=== PATIENT | male | born 1995 | race Caucasian/White ===

== ENCOUNTER 2017-02-20 16:45 | Emergency (ER) | payer OTHER ==
[2017-02-20 16:56] VITALS: TEMP 98.5; O2SAT 100
[2017-02-20] MEDS ORDERED: Sodium Chloride 0.9% 1,000 ML IV STA (17:19)
--- NOTE | 2017-02-20 17:34 | ED PDOC ---
HPI: SOB/CHF/COPD - Risk Factors PE Risk Factors: Neg: Extremity Immobilization/Fx, Decreased Mobilty /Activity, Recent Major Surgery, Recent Hospitalization, Active Cancer, Previous DVT, Previous PE, CHF, Venous Stasis, Estrogen Usage, , Post-, Recent Major Trauma <Sawyer Ojeda - Last Filed: 02/20/17 19:03> <Rowena Ellison - Last Filed: 02/21/17 14:23> Time Seen by Provider: 02/20/17 16:59 Chief Complaint (Nursing): Shortness Of Breath Additional Complaint(s): 21 year old male with medical history of asthma presents to ED due to shortness of breath, anxiousness, chest pain. Patient states was in usual state of health until Monday night when he had 2 glasses of pinot grigio when symptoms of dyspnea, anxiousness began. Patient then smoked marijuana later than evening, which calmed him down and allowed him to sleep. Yesterday, patient has symptoms throughout the day intermittently, at night was able to use nebulized albuterol which gave relief to patient and allowed him to sleep. Patient states similar symptoms today, though without successful relief with albuterol. Patient states he cant sit still, very anxious, feels he has fluids in lungs, chest pain is bilateral, feels like someone is sitting on his chest, and he is tearful. ( Sawyer Ojeda) Supervising Attending Note <Sawyer Ojeda - Last Filed: 02/20/17 19:03> - Supervising Attending Note The Documented history was done by the: Physician Simulation Technician, Attending Physician The documented physical exam was done by the: Physician Simulation Technician, Attending Physician - Attestation: I have personally seen and examined this patient.: Yes I have fully participated in the care of the patient.: Yes I have reviewed all pertinent clinical information, including history, physical exam and plan: Yes <Rowena Ellison - Last Filed: 02/21/17 14:23> - Notes: Notes:: 7p Pending Crisis eval 9p Evaluated by Dominic CHIN Pt stable for discharge with outpatient psych follow up. (Rowena Ellison) Past Medical History Reviewed: Historical Data, Nursing Documentation, Vital Signs - Medical History PMH: Asthma, Gastritis Denies: Diabetes, Hepatitis, HIV, HTN, Chronic Kidney Disease, Seizures, Sexually Transmitted Disease - Surgical History Surgical History: Tonsillectomy - Family History Family History: States: No Known Family Hx - Social History Alcohol: Occasional Drugs: Cannabis <Sawyer Ojeda - Last Filed: 02/20/17 19:03> <ScotRowena J - Last Filed: 02/21/17 14:23> Vital Signs: Last Vital Signs Temp 98.5 F 02/20/17 16:54 Pulse 77 02/20/17 21:19 Resp 18 02/20/17 21:19 BP 115/60 02/20/17 21:19 Pulse Ox 100 02/20/17 21:19 - Home Medications Home Medications: Ambulatory Orders Medication Instructions Recorded Multivitamin and [id number] [Daily 1 tab PO DAILY #0 tab 02/17/15 Multi/Max-Vitamins] traMADol [Ultram] 50 mg PO Q6 PRN #0 tab 02/17/15 - Allergies Allergies/Adverse Reactions: Allergies Allergy/AdvReac Type Severity Reaction Status Date / Time kiwi AdvReac SHORTNESS Uncoded 02/20/17 16:54 OF BREATH Review of Systems ROS Statement: Except As Marked, All Systems Reviewed And Found Negative Cardiovascular: Positive for: Chest Pain, Palpitations Respiratory: Positive for: Shortness of Breath Psych: Positive for: Anxiety <Sawyer Ojeda - Last Filed: 02/20/17 19:03> Physical Exam - Reviewed Nursing Documentation Reviewed: Yes Vital Signs Reviewed: Yes - Physical Exam Appears: Positive for: Non-toxic, Uncomfortable (fidgety, anxious appearing, tearful) Head Exam: Positive for: ATRAUMATIC, NORMAL INSPECTION, NORMOCEPHALIC Skin: Positive for: Normal Color, Warm Eye Exam: Positive for: Normal appearance, EOMI ENT: Positive for: Pharynx Is (normal, clear) Neck: Positive for: Normal, Painless ROM, Supple Cardiovascular/Chest: Positive for: Tachycardia (regular rhythm), Other ( reproducible chest pain left sided) Respiratory: Positive for: Normal Breath Sounds <Sawyer Ojeda - Last Filed: 02/20/17 19:03> - Laboratory Results Result Diagrams: 02/20/17 17:30 02/20/17 17:30 - ECG O2 Sat by Pulse Oximetry: 100 <Sawyer Ojeda - Last Filed: 02/20/17 19:03> - Laboratory Results Result Diagrams: 02/20/17 17:30 02/20/17 17:30 <Rowena Ellison - Last Filed: 02/21/17 14:23> - Progress ED Course And Treament: Time: 1700 Assessment: 21 year old male with medical history of asthma presents to ED due to shortness of breath, anxiousness, chest pain with episodes beginning Monday night. Worsened by feelings of depression/sadness due to friend he would like to be with. Denies use of illicit drugs at this time though marijuana use Monday night with wine. Vitals stable, PE notable for anxious appearing, reproducible left sided chest pain, tachycardia. DDx includes but not limited to: Panic attack vs anxiety vs drug intoxication. Plan: * CBC * CMP * TROPONIN * MG * PHOS * URINE DRUG SCREEN * ACETAMINOPHEN LEVEL * SALICYLATE LEVEL * CPK * TSH * ALCOHOL SERUM * EKG * CXR * NS 1L BOLUS * REASSESS Time: 1845 Patient calm, laying in bed, appears comfortable. EKG reviewed, sinus tachycardia, no ST changes Labs reviewed, unremarkable except for Total Creatinine Kinase 451, Phosphorus 1.8 Will continue to hydrate via NS at this time Pending UDS. (Sawyer Ojeda) Disposition - Disposition Disposition: Transfer of Care Disposition Time: 19:00 Patient Signed Over To: Rowena Ellison Handoff Comments: Endorsed patient to Dr. Ellison pending urine drug screen and disposition <Sawyer Ojeda - Last Filed: 02/20/17 19:03> - Disposition Disposition: Routine/Home <Rowena Ellison - Last Filed: 02/21/17 14:23> - Clinical Impression Clinical Impression: Anxiety, Marijuana abuse - Disposition Referrals: Community [facility] [Outside] Condition: STABLE Additional Instructions: FOLLOW UP DIRECTED BY NATURAL RESOURCES TECHNICIAN Instructions: Cannabis Abuse (ED), Anxiety (ED) Forms: [facility] ED School/Work Excuse
[2017-02-20 17:51] LABS: BASO # 0.1 K/uL (0.0-0.2); BASO % 0.7 % (0.0-2.0); EOS # 0.5 K/uL (0.0-0.7); EOS % 5.5 % (0.0-4.0); HEMATOCRIT 45.4 % (35.0-51.0); LYMPH # 1.5 K/uL (1.0-4.3); MEAN CELL VOLUME 91.1 fl (80.0-94.0); MEAN CORPUSCULAR HEMOGLOBIN 30.9 pg (27.0-31.0); MEAN CORPUSCULAR HGB CONC 33.9 g/dL (33.0-37.0); MEAN PLATELET VOLUME 8.5 fl (7.2-11.7); MONO # 0.5 K/uL (0.0-0.8); MONO % 6.2 % (0.0-10.0); NEUT # 6.2 K/uL (1.8-7.0); NEUT % 70.6 % (50.0-75.0); RED CELL DISTRIBUTION WIDTH 14.3 % (11.5-14.5); WHITE BLOOD COUNT 8.7 K/uL (4.8-10.8)
[2017-02-20 18:09] LABS: ALB/GLOB RATIO 1.3 (1.0-2.1); ALCOHOL SERUM < 10 mg/dl (0-10); ALKALINE PHOSPHATASE 81 U/L (38-126); ALT/SGPT 28 U/L (21-72); AST/SGOT 42 U/L (17-59); BILIRUBIN,TOTAL 0.8 mg/dl (0.2-1.3); BLOOD UREA NITROGEN 13 mg/dl (9-20); CALCIUM 10.3 mg/dL (8.4-10.2); CARBON DIOXIDE 26 mmol/L (22-30); CHLORIDE 105 mmol/L (98-107); GFR AFRICAN-AMERICAN > 60; GLUCOSE,RANDOM 98 mg/dL (75-110); PHOSPHOROUS 1.8 mg/dl (2.5-4.5); POTASSIUM 3.9 MMOL/L (3.6-5.0); SODIUM 144 mmol/l (132-148); TOTAL PROTEIN 8.6 G/DL (6.3-8.2)
[2017-02-20 18:39] LABS: THYROID STIMULATING HORMONE 0.95 mIU/ML (0.46-4.68)
[2017-02-20 21:20] VITALS: BP 115/60; PULSE 77; RESP 18
--- NOTE | 2017-02-21 07:17 | CARD ---
APPROVED REPORT EKG Measurement Heart [id number] CT 136P60 [id number] <Conclusion> Sinus tachycardia Otherwise normal ECG
--- NOTE | 2017-02-21 09:46 | RAD ---
HISTORY: sob COMPARISON: Comparison chest 02/15/2015 TECHNIQUE: Chest PA and lateral FINDINGS: LUNGS: No active pulmonary disease. PLEURA: No significant pleural effusion identified. No pneumothorax apparent. CARDIOVASCULAR: Normal. OSSEOUS STRUCTURES: No significant abnormalities. VISUALIZED UPPER ABDOMEN: Normal. OTHER FINDINGS: Bilateral nipple rings. IMPRESSION: No active disease.
== END 2017-02-20 22:12 | disposition home or self-care (01) ==
LOC: H.ER 16:45
DX: F41.9 Anxiety disorder, unspecified (principal); F12.10 Cannabis abuse, uncomplicated; J45.909 Unspecified asthma, uncomplicated; R06.02 Shortness of breath; Z86.718 Personal history of other venous thrombosis and embolism

== ENCOUNTER 2019-02-10 17:26 | Inpatient (IN) | payer OTHER ==
[2019-02-10 17:29] VITALS: BMI 25.1
[2019-02-10 18:28] LABS: URINE BILIRUBIN NEGATIVE (NEGATIVE); URINE BLOOD NEGATIVE (NEGATIVE); URINE CLARITY CLEAR (Clear); URINE COLOR COLORLESS (YELLOW); URINE GLUCOSE (UA) NEG (NEGATIVE); URINE LEUKOCYTE ESTERASE NEG Leu/uL (Negative); URINE PROTEIN NEGATIVE (NEGATIVE); URINE UROBILINOGEN 0.2-1.0 mg/dL (0.2-1.0)
--- NOTE | 2019-02-10 18:40 | ED PDOC ---
HPI: Psych/Substance Abuse Time Seen by Provider: 02/10/19 18:15 Chief Complaint (Nursing): Substance Abuse Chief Complaint (Provider): substance abuse ED Caveat: Intoxicated History Per: Patient History/Exam Limitations: intoxication Onset/Duration Of Symptoms: Days Current Symptoms Are (Timing): Still Present Suicide/Self Injury Attempted (Context): Ingestion Ingestion Of Substance: 2mg of aprazolam, alcohol Modifying Factor(s): Alcohol Severity: None Pain Scale Rating Of: 0 Associated Symptoms: Anxiety, Depression, Suicidal Thoughts, Suicidal Plan Involuntary Hold By: Emergency Physician Additional History Per: Patient Additional Complaint(s): 23 year old male brought in ems in stretcher after patient called a "hotline" expressing thoughts of suicide and suicidal ideations. 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 Patient states he has been feeling depressed, anxious with associated suicidal ideations and thoughts since Feburary after being diag nosed with HIV. He was started on xanax after diagnosis due to anxiety and inability to sleep. He states he drinks 2 glasses of wine everyday since diagnoses. Patient states he is also hearing voices telling him that hes "worthless, to kill" himself. patient verbalizes that he does not want to live. He states he has been trying to get help for these thoughts but every where he calls they're unable to give an appointment until for 3 months out. Patient denies nausea, vomiting, abd pain, sob, chest pain. Medical Hx include Asthma. Past Medical History Reviewed: Historical Data, Nursing Documentation, Vital Signs Vital Signs: Last Vital Signs Temp 99 F 02/10/19 17:28 Pulse 92 H 02/10/19 17:28 Resp 16 02/10/19 17:28 BP 139/69 02/10/19 17:28 Pulse Ox 98 02/10/19 17:28 - Medical History PMH: Asthma, Gastritis Denies: Diabetes, Hepatitis, HIV, HTN, Chronic Kidney Disease, Seizures, Sexually Transmitted Disease - Surgical History Surgical History: Tonsillectomy - Family History Family History: States: Unknown Family Hx - Living Arrangements Living Arrangements: With Family - Social History Alcohol: > 2 Drinks/Day Drugs: Denies - Immunization History Hx Tetanus Toxoid Vaccination: No Hx Influenza Vaccination: No Hx Pneumococcal Vaccination: No - Home Medications Home Medications: Ambulatory Orders Medication Instructions Recorded Darunavir/Cob/Emtri/Tenof Alaf 1 tab DAILY 02/10/19 [Symtuza 158-406-154-10 mg Tab] - Allergies Allergies/Adverse Reactions: Allergies Allergy/AdvReac Type Severity Reaction Status Date / Time stella AdvReac SHORTNESS Uncoded 02/20/17 16:54 OF BREATH Review of Systems ROS Statement: Except As Marked, All Systems Reviewed And Found Negative Cardiovascular: Negative for: Chest Pain, Palpitations Respiratory: Negative for: Shortness of Breath Gastrointestinal: Negative for: Nausea, Vomiting, Abdominal Pain Psych: Positive for: Anxiety, Depression, Suicidal ideation Physical Exam - Reviewed Nursing Documentation Reviewed: Yes Vital Signs Reviewed: Yes - Physical Exam Appears: Positive for: Well, Non-toxic, No Acute Distress Head Exam: Positive for: ATRAUMATIC, NORMAL INSPECTION, NORMOCEPHALIC Skin: Positive for: Normal Color, Warm, DRY Eye Exam: Positive for: EOMI, Normal appearance, PERRL ENT: Positive for: Normal ENT Inspection Neck: Positive for: Normal, Painless ROM, Supple Cardiovascular/Chest: Positive for: Regular Rate, Rhythm Respiratory: Positive for: CNT, Normal Breath Sounds Gastrointestinal/Abdominal: Positive for: Normal Exam, Bowel Sounds, Soft. Negative for: Tenderness Male Genital Exam: Positive for: normal genitalia Back: Positive for: Normal Inspection Extremity: Positive for: Normal ROM Neurological/Psych: Positive for: Awake, Alert, Normal Tone, Symmetric/Intact Strength, Oriented - Laboratory Results Result Diagrams: 02/10/19 18:23 02/10/19 18:23 Lab Results: Urine Color Colorless (YELLOW) 02/10/19 18:14 Urine Clarity Clear (Clear) 02/10/19 18:14 Urine pH 6.0 (5.0-8.0) 02/10/19 18:14 Ur Specific [place]ison < 1.005 (1.003-1.030) 02/10/19 18:14 Urine Protein Negative mg/dL (NEGATIVE) 02/10/19 18:14 Urine Glucose (UA) Neg mg/dL (NEGATIVE) 02/10/19 18:14 Urine Ketones Negative mg/dL (NEGATIVE) 02/10/19 18:14 Urine Blood Negative (NEGATIVE) 02/10/19 18:14 Urine Nitrate Negative (NEGATIVE) 02/10/19 18:14 Urine Bilirubin Negative (NEGATIVE) 02/10/19 18:14 Urine Urobilinogen 0.2-1.0 mg/dL (0.2-1.0) 02/10/19 18:14 Ur Leukocyte Esterase Neg Catrina/uL (Negative) 02/10/19 18:14 Urine Microscopic WBC < 1 /hpf (0-5) 02/10/19 18:14 - ECG ECG Rhythm: Positive for: Normal QRS Interpretation Of ECG: SIGNED AND INTERPRETED BY . Rate: 88 O2 Sat by Pulse Oximetry: 98 - Radiology X-Ray: Viewed By Mt X-Ray Interpretation: No Acute Disease Medical Decision Making Medical Decision Making: --CBC --CMP --ALCOHOL LEVEL --SALICYTATE --TYLENOL LEVEL --UA --URINE DRUG SCREEN --EKG --1:1 OBS 19:00: SPOKE TO ADRIEN AT [facility] CALLED FOR RECOMMENDATIONS DUE TO PATIENT INGESTION OF APRAZOLAM AND ALCOHOL. 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 PATIENT IS CURRENTLY AOX3. ANSWERING ALL QUESTIONS. APPROPRIATELY. 19:44: K+: 3.3, KDUR 20 MEQ PO 19:51: HR:74 RESP:18 02SAT: 96% ON RM AIR. PATIENT RESTING COMFORTABLY. ON 1:1 FOR SAFETY. PENDING TYLENOL LEVEL FOR MEDICAL CLEARANCE. PATIENT HANDED -OFF TO EDMUNDO CHAN PA-C TO FOLLOW-UP ON LABS AND PSYCH DISPOSITION. Disposition - Clinical Impression Clinical Impression: Depression, Suicidal intent - Disposition Disposition: Transfer of Care Disposition Time: 20:00 Condition: STABLE Patient Signed Over To: Edmundo Petit Handoff Comments: PENDING TYLENOL LEVEL AND CRISIS EVAL - POA Present On Arrival: None
[2019-02-10 18:43] LABS: BENZODIAZEPINES, UR NEGATIVE (NEGATIVE)
[2019-02-10 19:00] LABS: BASO % 0.7 % (0.0-2.0); EOS # 0.3 K/uL (0.0-0.7); HEMOGLOBIN 14.4 g/dL (12.0-18.0); LYMPH # 2.4 K/uL (1.0-4.3); LYMPH % 38.4 % (20.0-40.0); MEAN CELL VOLUME 91.3 fl (80.0-94.0); MEAN CORPUSCULAR HEMOGLOBIN 30.5 pg (27.0-31.0); MEAN CORPUSCULAR HGB CONC 33.4 g/dL (33.0-37.0); MEAN PLATELET VOLUME 8.2 fl (7.2-11.7); MONO # 0.5 K/uL (0.0-0.8); MONO % 7.7 % (0.0-10.0); NEUT % 48.2 % (50.0-75.0); NRBC % 0.1 % (0.0-0.0); RBC 4.73 Mil/uL (4.40-5.90); RED CELL DISTRIBUTION WIDTH 14.9 % (11.5-14.5); WHITE BLOOD COUNT 6.3 K/uL (4.8-10.8)
[2019-02-10 19:09] LABS: BARBITURATES, UR NEGATIVE (NEGATIVE); OPIATES, UR NEGATIVE (NEGATIVE)
[2019-02-10 19:10] LABS: PHENCYCLIDINE, UR NEGATIVE (NEGATIVE)
[2019-02-10 19:13] LABS: ALB/GLOB RATIO 1.6 (1.0-2.1); ALBUMIN 4.9 g/dL (3.5-5.0); ALT/SGPT 31 U/L (21-72); AST/SGOT 58 U/L (17-59); BLOOD UREA NITROGEN 16 mg/dl (9-20); CALCIUM 9.7 mg/dL (8.4-10.2); GFR NON-AFRICAN AMERICAN > 60
[2019-02-10] MEDS ORDERED: Potassium Chloride 20 mEq ER Tab PO STA (19:41)
--- NOTE | 2019-02-10 20:42 | ED PDOC ---
- Laboratory Results Result Diagrams: 02/10/19 18:23 02/10/19 18:23 Lab Results: Total Bilirubin 0.5 mg/dl (0.2-1.3) 02/10/19 18:23 AST 58 U/L (17-59) 02/10/19 18:23 ALT 31 U/L (21-72) 02/10/19 18:23 Alkaline Phosphatase 60 U/L (38-126) 02/10/19 18:23 Total Protein 7.9 G/DL (6.3-8.2) 02/10/19 18:23 Albumin 4.9 g/dL (3.5-5.0) 02/10/19 18:23 Globulin 3.0 gm/dL (2.2-3.9) 02/10/19 18:23 Albumin/Globulin Ratio 1.6 (1.0-2.1) 02/10/19 18:23 Urine Color Colorless (YELLOW) 02/10/19 18:14 Urine Clarity Clear (Clear) 02/10/19 18:14 Urine pH 6.0 (5.0-8.0) 02/10/19 18:14 Ur Specific [place] < 1.005 (1.003-1.030) 02/10/19 18:14 Urine Protein Negative mg/dL (NEGATIVE) 02/10/19 18:14 Urine Glucose (UA) Neg mg/dL (NEGATIVE) 02/10/19 18:14 Urine Ketones Negative mg/dL (NEGATIVE) 02/10/19 18:14 Urine Blood Negative (NEGATIVE) 02/10/19 18:14 Urine Nitrate Negative (NEGATIVE) 02/10/19 18:14 Urine Bilirubin Negative (NEGATIVE) 02/10/19 18:14 Urine Urobilinogen 0.2-1.0 mg/dL (0.2-1.0) 02/10/19 18:14 Ur Leukocyte Esterase Neg Catrina/uL (Negative) 02/10/19 18:14 Urine Microscopic WBC < 1 /hpf (0-5) 02/10/19 18:14 - ECG O2 Sat by Pulse Oximetry: 98 Medical Decision Making Medical Decision Makin:00 case endorsed to me by Valentin HOPSON, pending crisis eval pt seen by me, awake, alert and oriented, rude, asking for food 21:44 pt seen by crisis will be admitted for depression to Dr. Gaitan discussed plan for admission with pt and pt's father who is bedside, pt understanding and in agreement Disposition Doctor Will See Patient In The: Hospital Counseled Patient/Family Regarding: Studies Performed, Diagnosis - Clinical Impression Clinical Impression: Depression, Suicidal intent - POA Present On Arrival: None - Disposition Disposition: Admitted as In-Patient Disposition Time: 21:50 Condition: STABLE
[2019-02-10] MEDS ORDERED: Potassium Chloride 20 mEq ER Tab PO ONE (21:16)
[2019-02-10] MEDS ORDERED: Alum-Mag Hydrox-Simethicone Susp (30 mL) PO PRN (22:49)
[2019-02-10] MEDS ORDERED: DiphenhydrAMINE 50 mg/ml Inj IM PRN (22:49)
[2019-02-10] MEDS ORDERED: Magnesium Hydroxide Susp 30 ml UD PO PRN (22:49)
[2019-02-10 23:09] VITALS: O2SAT 98
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
[2019-02-10] MEDS ORDERED: Albuterol 0.083% Inhal Sol (2.5 mg/3 mL) UD INH PRN (23:46)
[2019-02-11 08:55] LABS: LDL CHOLESTEROL 88 mg/dL (0-129)
[2019-02-11 09:07] LABS: BLOOD UREA NITROGEN 14 mg/dl (9-20); CALCIUM 9.4 mg/dL (8.4-10.2); GFR NON-AFRICAN AMERICAN > 60; HDL CHOLESTEROL 54 MG/DL (30-70)
--- NOTE | 2019-02-11 09:28 | CARD ---
APPROVED REPORT Date of service: 02/10/2019 EKG Measurement Heart [id number] [id number] <Conclusion> Normal sinus rhythm Normal ECG
[2019-02-11] MEDS: [UNRECOGNIZED DRUG - OTHER] PO SCH (09:57)
--- NOTE | 2019-02-11 10:27 | RAD ---
Date of service: 02/10/2019 HISTORY: medical clearance COMPARISON: 02/20/2017. FINDINGS: LUNGS: No active pulmonary disease. PLEURA: No significant pleural effusion identified, no pneumothorax apparent. CARDIOVASCULAR: No atherosclerotic calcification present Normal. OSSEOUS STRUCTURES: No significant abnormalities. VISUALIZED UPPER ABDOMEN: Normal. OTHER FINDINGS: None. IMPRESSION: No active disease. No significant interval change compared to the prior examination(s).
--- NOTE | 2019-02-11 11:59 | PCM.PSYCH ---
Initial Psychiatric Evaluation - Initial Psychiatric Evaluation Type of Admission: Voluntary Legal Status: Capacity Chief Complaint (in patient's own words): "I'm depressed." Patient's Reaction to Hospitalization: HPI: 23 yo male w/ no past psychiatric history, presents w/ worsening depression, initially reported AH, now no current AH, suicidal ideation w/o plan, hopelessness, sleep disturbances, in the context of daily alcohol use and xanax use (prescribed by PMD). PPHx: Denies past psychiatric history; prescribed xanax by his PMD PMHx: HIV, Asthma ALL: NKDA, Kiwi FHx: Denies family h/o mental illness SHx: Lives w/ family; smokes marijuana occasionally (last use 2 weeks ago), +Daily etoh use; +Xanax use; denies cig us Current Medications: Active Medications Generic Name Dose Route Start Last Admin Trade Name Freq PRN Reason Stop Dose Admin Acetaminophen 650 mg 02/10/19 22:49 Tylenol 325mg Tab PO Q4 PRN Pain level 4-7 Al Hydrox/Mg Hydrox/Simethicone 30 ml 02/10/19 22:49 Maalox Plus 30 Ml PO Q4 PRN Dyspepsia Albuterol Sulfate 2.5 mg 02/10/19 23:46 Albuterol 0.083% Inhal Gris (2.5 Mg/3 Ml) Ud INH RQ6 PRN Shortness of Breath Diphenhydramine HCl 50 mg 02/10/19 22:49 Benadryl IM Q6 PRN Extrapyramidal S/S Unable PO Diphenhydramine HCl 50 mg 02/10/19 22:49 Benadryl PO Q6 PRN Extrapyramidal Symptoms Diphenhydramine HCl 50 mg 02/10/19 22:55 Benadryl PO HS PRN Sleep Escitalopram Oxalate 5 mg 02/11/19 12:00 Lexapro PO DAILY CONNOR Folic Acid 1 mg 02/11/19 09:00 02/11/19 09:55 Folic Acid PO 1 mg DAILY CONNOR Administration Haloperidol 5 mg 02/10/19 22:49 Haldol PO Q4 PRN Agitation Haloperidol Lactate 5 mg 02/10/19 22:49 Haldol IM Q4 PRN Agitation, Unable to Take PO Home Med 1 tab 02/11/19 09:00 02/11/19 09:57 Darunavir/Cob/Emtri/Tenof Alaf [Symtuza 382-989-300-10 Mg Tab] PO 1 tab DAILY CONNOR Administration Lorazepam 2 mg 02/10/19 22:49 Ativan IM Q8H PRN Anxiety/Agitation,Unable PO Lorazepam 1 mg 02/11/19 09:00 02/11/19 09:56 Ativan PO 1 mg TID CONNOR Administration Magnesium Hydroxide 30 ml 02/10/19 22:49 Milk Of Magnesia PO HS PRN Constipation Thiamine HCl 100 mg 02/11/19 09:00 02/11/19 09:55 Vitamin B1 Tab PO 100 mg DAILY CONNOR Administration Past Psychiatric History - Past Psychiatric History Pertinent Medical Hx (Current Medical&Sleep Prob, Allergies): Allergies Allergy/AdvReac Type Severity Reaction Status Date / Time stella AdvReac SHORTNESS Uncoded 02/20/17 16:54 OF BREATH Darunavir/Cob/Emtri/Tenof Alaf [Symtuza [id number] mg Tab] 1 tab DAILY 02/10/19 Review of Systems - Psychiatric Psychiatric: As Per HPI, Abnormal Sleep Pattern, Anhedonia, Anxiety, Auditory Hallucinations, Behavioral Changes, Change in Appetite, Depression, Difficulty Concentrating, Hallucinations, Hopelessness, Irritability, Mood Swings, Suicidal Ideation Mental Status Examination - Personal Presentation Personal Presentation: Looks stated age - Affect Affect: Constricted, Depressed - Motor Activity Motor Activity: Calm - Reliability in Providing Information Reliability in Providing Information: Good - Speech Speech: Organized - Mood Mood: Depressed - Formal Thought Process Formal Thought Process: No Impairment - Obsessions/Compulsions Obsessions: No Compulsions: No - Cognitive Functions Orientation: Person, Place, Situation, Time Sensorium: Alert Attention/Concentration: Attentive Estimate of Intelligence: Average Judgement: Intact, as evidence by: Insight regarding need for hospitalization Memory: Recent intact, as evidence by: Ability to recall events of the day, Remote intact, as evidenced by: Abilit to recall sig. life events, Remote intact, as evidenced by: Ability to recall historical events - Risk Risk: Suicidal, Diminished functioning - Strength & Assets Inventory Strength & Assets Inventory: Family support, Cooperative DSM 5 DX - DSM 5 DSM 5 Diagnosis: Major Depressive Disorder; Alcohol Use Disorder - Recommended/Plan of Treatment Treatment Recommendations and Plan of Treatment: Major Depressive Disorder; Alcohol Use Disorder -Admit to psychiatry unit -Ativan to prevent alcohol and benzo withdrawal -Start Lexapro, will titrate as clinically indicated -Medicine consult -Individual and group therapy -Psychoeducation -Disposition planning Projected ELOS: 5-9 days Discharge Plan and Discharge Criteria: Discharge when patient is psychiatrically stable - Smoking Cessation Smoking Cessation Initiated: No Reason for not providing: Not indicated
[2019-02-12] MEDS: [UNRECOGNIZED DRUG - OTHER] PO SCH (08:52)
--- NOTE | 2019-02-12 14:29 | PCM.PYCHPN ---
Psychiatric Progress Note - Psychiatric Progress Note Patient seen today, length of contact: pt evaluated discussed with team chart reviewed Patient Chief Complaint: I see no hope in my future Problems Identified/Issues Discussed: patient evaluated with treatment team, guarded and evasive initially,more opened with the progress of the interview presenting with partial eye contact, depressed moosd and affect, pt stated that he sees no hope in the future since h e came to know that he was diagnosed with HIV last november adding o his depression is the recent break up with his boy friend , pt continues to report feeling hopeless about his situation, stated at times he fels paranoid and uncomfortable around people, also reported passive suicidal ideation without active plan on the unit, discussed with pt increasing dose of lexapro, also discussed starting neurontin and abilify for anxiety and depression, no reported side effects of medications patient denied any current perceptual disturbances DSM 5 Symptoms Update: major depression recurrent severe borderline personality disorder traits generalized anxiety disorder Medication Change: Yes (increase lexapro, start abilify ) Medical Record Reviewed: Yes Mental Status Examination - Cognitive Function Orientation: Person, Place, Situation, Time Attention: WNL Concentration: WNL Association: WNL Fund of Knowledge: [facility] Decription of patient's judgement and insights: partial insight , fair judgment - Mood Mood: Depressed - Affect Affect: Constricted, Depressed - Speech Speech: Soft - Formal Thought Process Formal Thought Process: Paranoia - Suicidal Ideation Suicidal Ideation: Yes Plan: passive suicidal ideation, no plan - Homicidal Ideation Homicidal Ideation: No Goal/Treatment Plan - Goal/Treatment Plan Need for Continued Stay: Severe depression anxiety, Discharge may exacerbated symptoms Progress Toward Problem(s) and Goals/Treatment Plan: increase lexpro 10mg daily start neurontin 100mg tid start abilify 2mg daily incestuous disease consult CBT, group and supportive therapy
[2019-02-13] MEDS: [UNRECOGNIZED DRUG - OTHER] PO SCH (08:34)
--- NOTE | 2019-02-13 16:50 | PCM.PYCHPN ---
Psychiatric Progress Note - Psychiatric Progress Note Patient seen today, length of contact: pt evaluated discussed with team chart reviewed Patient Chief Complaint: I sometimes feel there is no way out of my problems Problems Identified/Issues Discussed: patient evaluated , more cooperative and more interactive with the policy writer sales , patient stated that he feels at times hopeless about his situation , mainly dealing with his recent medical diagnosis , CBT provided , continued to discuss with patient the automatic negative thoughts of hopelessness and the need to challenge those thoughts, also discussed healthier coping skills rather than self harm, patient able to verbalize healthier coping skills, reported having a supportive parent , pt agreed to start partial program on discharge, for intensive outpatient therapy, discussed increasing dose of abilify for paranoid thoughts and better impulse control , pt denied any current side effects, rated the intrusive self harm thoughts to be 2/10 compared to 10/10 on admission patient denied any current perceptual disturbances , more interactive with other peers, attending groups and showing more insight into illness DSM 5 Symptoms Update: major depression recurrent severe with psychotic features borderline personality disorder Medication Change: Yes (increase abilify ) Medical Record Reviewed: Yes Mental Status Examination - Cognitive Function Orientation: Person, Place, Situation, Time Attention: WNL Concentration: WNL Association: WNL Fund of Knowledge: [facility] Decription of patient's judgement and insights: partial insight , fair judgment - Mood Mood: Depressed - Affect Affect: Constricted, Depressed - Speech Speech: Soft - Formal Thought Process Formal Thought Process: Paranoia - Suicidal Ideation Suicidal Ideation: No - Homicidal Ideation Homicidal Ideation: No Goal/Treatment Plan - Goal/Treatment Plan Need for Continued Stay: Severe depression anxiety, Discharge may exacerbated symptoms Progress Toward Problem(s) and Goals/Treatment Plan: lexpro 10mg daily neurontin 100mg tid increase abilify 5mg daily infectious disease consult CBT, group and supportive therapy referral to high focus program on discharge
--- NOTE | 2019-02-13 20:36 | CP.PCM.PN ---
Subjective - Date & Time of Evaluation Date of Evaluation: 02/13/19 Time of Evaluation: 20:31 - Subjective Subjective: I D NOTE PATIENT EVALUATED HISTORY REVIEWED ,HAD LONG DISCUSSION c HIM REGARDING HISTORY OF HIV DISEASE AND THAT HE WOULD DO WELL IF HE TAKES ARVs and takes care of himself. have ordered appropriate labs and will discuss c him Objective - Vital Signs/Intake and Output Vital Signs (last 24 hours): Temp Pulse Resp BP Pulse Ox 98.1 F 88 17 135/76 98 02/13/19 17:00 02/13/19 17:00 02/13/19 17:00 02/13/19 17:00 02/10/19 23:08 - Medications Medications: Current Medications Acetaminophen (Tylenol 325mg Tab) 650 mg PO Q4 PRN PRN Reason: Pain level 4-7 Al Hydrox/Mg Hydrox/Simethicone (Maalox Plus 30 Ml) 30 ml PO Q4 PRN PRN Reason: Dyspepsia Albuterol Sulfate (Albuterol 0.083% Inhal Gris (2.5 Mg/3 Ml) Ud) 2.5 mg INH RQ6 PRN PRN Reason: Shortness of Breath Aripiprazole (Abilify) 5 mg PO DAILY [facility] Diphenhydramine HCl (Benadryl) 50 mg IM Q6 PRN PRN Reason: Extrapyramidal S/S Unable PO Diphenhydramine HCl (Benadryl) 50 mg PO Q6 PRN PRN Reason: Extrapyramidal Symptoms Diphenhydramine HCl (Benadryl) 50 mg PO HS PRN PRN Reason: Sleep Last Admin: 02/12/19 21:13 Dose: 50 mg Escitalopram Oxalate (Lexapro) 10 mg PO DAILY [facility] Last Admin: 02/13/19 08:33 Dose: 10 mg Folic Acid (Folic Acid) 1 mg PO DAILY [facility] Last Admin: 02/13/19 08:34 Dose: 1 mg Gabapentin (Neurontin) 100 mg PO TID [facility] Last Admin: 02/13/19 17:15 Dose: 100 mg Haloperidol (Haldol) 5 mg PO Q4 PRN PRN Reason: Agitation Haloperidol Lactate (Haldol) 5 mg IM Q4 PRN PRN Reason: Agitation, Unable to Take PO Home Med (Darunavir/Cob/Emtri/Tenof Alaf [Symtuza [phone] Mg Tab]) 1 tab PO DAILY [facility] Last Admin: 02/13/19 08:34 Dose: 1 tab Lorazepam (Ativan) 2 mg IM Q8H PRN PRN Reason: Anxiety/Agitation,Unable PO Lorazepam (Ativan) 1 mg PO TID [facility] Last Admin: 02/13/19 17:15 Dose: 1 mg Lorazepam (Ativan) 1 mg PO Q12 PRN PRN Reason: Anxiety Last Admin: 02/13/19 02:33 Dose: 1 mg Magnesium Hydroxide (Milk Of Magnesia) 30 ml PO HS PRN PRN Reason: Constipation Thiamine HCl (Vitamin B1 Tab) 100 mg PO DAILY [facility] Last Admin: 02/13/19 08:34 Dose: 100 mg - Labs Labs: 02/10/19 18:23 02/11/19 08:00
[2019-02-14] MEDS: [UNRECOGNIZED DRUG - OTHER] PO SCH (08:18)
[2019-02-14 09:01] VITALS: RESP 18
[2019-02-14 10:26] LABS: % CD4 (T HELPER CELL) 46 Percent (30-61); % CD8 (SUPPRESSOR T CELL) 31 Percent (12-42); ABSOLUTE CD4 CELLS 506 Cells/mcL (490-1740); ABSOLUTE CD8 CELLS 338 Cells/mcL (180-1170); ABSOLUTE LYMPHOCYTES 1097 Cells/mcL (850-3900)
--- NOTE | 2019-02-14 13:45 | PCM.PYCHPN ---
Psychiatric Progress Note - Psychiatric Progress Note Patient seen today, length of contact: pt evaluated discussed with team chart reviewed Patient Chief Complaint: I am ready to start the program Problems Identified/Issues Discussed: patient evaluated , presenting with brighter affect, reported mood better pt stated feeling content he met with ID physician more optimistic about his prognosis, no reported side effects of medications, no noted changes in sleep or appetite patient denied any current perceptual disturbances , more interactive with other peers, attending groups and showing more insight into illness DSM 5 Symptoms Update: major depression severe recurrent Medication Change: No Medical Record Reviewed: Yes Mental Status Examination - Cognitive Function Orientation: Person, Place, Situation, Time Attention: WNL Concentration: WNL Association: WNL Fund of Knowledge: [facility]N Decription of patient's judgement and insights: partial insight , fair judgment - Mood Mood: Depressed - Affect Affect: Constricted, Depressed - Speech Speech: Appropriate - Formal Thought Process Formal Thought Process: No Impairment - Suicidal Ideation Suicidal Ideation: No - Homicidal Ideation Homicidal Ideation: No Goal/Treatment Plan - Goal/Treatment Plan Need for Continued Stay: Severe depression anxiety, Discharge may exacerbated symptoms Progress Toward Problem(s) and Goals/Treatment Plan: lexpro 10mg daily neurontin 100mg tid increase abilify 5mg daily infectious disease consult CBT, group and supportive therapy referral to high focus program on discharge
[2019-02-15] MEDS: [UNRECOGNIZED DRUG - OTHER] PO SCH (09:36)
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
[2019-02-15 11:22] VITALS: BP 118/75; PULSE 80; TEMP 98.2
== END 2019-02-15 13:26 | disposition home or self-care (01) | DRG 885 ==
LOC: H.ER 17:26 → H.ERHOLD 22:12 → H.PSYCH 22:41
PROVIDERS: ADMIT Psychiatry & Neurology Psychiatry; ATTEND Psychiatry & Neurology Psychiatry
PROC: GZHZZZZ Group Psychotherapy (ICD-10-PCS; principal; 2019-02-10)
PROC: GZ58ZZZ Individual Psychotherapy, Cognitive-Behavioral (ICD-10-PCS; 2019-02-10)
PROC: HZ52ZZZ Individual Psychotherapy for Substance Abuse Treatment, Cognitive-Behavioral (ICD-10-PCS; 2019-02-10)
DX: F33.2 Major depressive disorder, recurrent severe without psychotic features (principal); R45.851 Suicidal ideations; F10.129 Alcohol abuse with intoxication, unspecified; Y90.6 Blood alcohol level of 120-199 mg/100 ml; F41.1 Generalized anxiety disorder; F60.3 Borderline personality disorder; Z21 Asymptomatic human immunodeficiency virus [HIV] infection status; F12.90 Cannabis use, unspecified, uncomplicated; G47.00 Insomnia, unspecified; J45.909 Unspecified asthma, uncomplicated; K29.70 Gastritis, unspecified, without bleeding